=== PATIENT | male | born 1995 ===

== ENCOUNTER 2023-12-13 11:01 | Emergency (ER) | payer OTHER, SELFPAY ==
[2023-12-13 11:18] VITALS: BP 136/66; PULSE 88; RESP 20; TEMP 37.4; O2SAT 99
--- NOTE | 2023-12-13 12:03 | ED.URI ---
HPI - URI/Sore Throat General Chief Complaint: Upper Respiratory Infection Stated Complaint: Headache/Sore Throat Time Seen by Provider: 12/13/23 11:40 Source: patient, family, RN notes reviewed and old records reviewed Mode of arrival: ambulatory Limitations: no limitations History of Present Illness HPI Narrative: 28 year old male wh presents to [facility] care with complaints of sore throat, since Thursday 2 days ago. Yesterday he started having fever, chills and body aches, with increasing symptoms. Patient reports that he has been taking Tylenol and Ibuprofen for his symptoms and fevers. MD elicited complaint: fever, sore throat and other (body aches) Pertinent past history: other (nasal surgery) Onset (ago): day(s) (day 3 of symptoms) Pain scale (0-10): 4 Description of mucous: clear Able to tolerate fluids by mouth: Yes Exacerbating factors: swallowing Treatments prior to arrival: acetaminophen and ibuprofen Related Data Allergies Allergy/AdvReac Type Severity Reaction Status Date / Time No Known Allergies Allergy Verified 12/13/23 11:33 Review of Systems Review of Systems: CONSTITUTIONAL:Reports malaise, chills, sweats, or fever. EYES: Denies visual changes, redness, or discharge. ENT: Reports rhinorrhea, congestion, sinus pain, otalgia and sore throat. CARDIOVASCULAR: Denies chest pain, palpitations, or edema. RESPIRATORY: Reports no acute cough.? Denies dyspnea. GASTROINTESTINAL: Denies abdominal pain, nausea, vomiting, diarrhea SKIN: Denies rash or itching. MUSCULOSKELETAL:Reports myalgia. NEUROLOGIC: Denies headache. All systems reviewed & are unremarkable except as noted in HPI and below PMFSH Surgical History Surgical History (Updated 12/14/23 @ 19:03 by Tiffanie Khanna NP) History of nasal surgery Social History Social History (Updated 12/14/23 @ 19:03 by Tiffanie Khanna NP) Smoking status: Never smoker Alcohol intake: current Alcohol use details: rare Substance use type: does not use Living arrangements: with family Gender identity (if verbalized by the patient): Male Comments At time of signature, agree with nursing past medical, surgical, social and family history. There is no relevant family history pertinent to the presenting complaint Exam Narrative: GENERAL: Well-appearing, well-nourished, and in no acute distress. HEAD: Normocephalic EYES: PERRLA, conjunctivae clear ENT: Nares clear, turbinates edematous and erythematous, clear discharge. Mucous membranes moist.Right TM red, Left TM pearly lindsey with dull light reflex; no tragal tenderness. Oropharynx erythematous without lesions. Tonsils enlarged and without exudate, no drooling, no hoarseness, no trismus, uvula midline.post nasal drainage NECK: Supple. No lymphadenopathy CHEST: Clear to auscultation, breath sounds equal. No wheezing, rhonchi, rales, or stridor. No respiratory distress, speaks in full sentences.no cough noted,SAO2 99% on room air HEART: Regular rate and rhythm. No murmur heard. SKIN: Warm, dry, no rash. NEURO: Alert and oriented x3. PSYCH: Normal mood and affect Course Course Emergency Course: Patient is aware of diagnosis, understands and agrees to treatment plan.? Anticipatory guidance given.? Patient agrees to follow-up as directed and is aware of reasons to seek care at the emergency department. Portions of this record may have been created with voice recognition software Level of Care: Express Care Visit Vital Signs Vital signs: Vital Signs Temperature 37.4 C 12/13/23 11:18 Pulse Rate 88 12/13/23 11:18 Respiratory Rate 20 12/13/23 11:18 Blood Pressure 136/66 12/13/23 11:18 Pulse Oximetry 99 12/13/23 11:18 Oxygen Delivery Room Air 12/13/23 11:18 Temperature 37.4 C 12/13/23 11:18 Pulse Rate 88 12/13/23 11:18 Respiratory Rate 20 12/13/23 11:18 Blood Pressure 136/66 12/13/23 11:18 Pulse Oximetry 99 12/13/23
== END 2023-12-13 12:16 | disposition home or self-care (01) ==
PROVIDERS: Emergency Provider Registered Nurse
DX: H65.01 Acute serous otitis media, right ear (principal); J02.9 Acute pharyngitis, unspecified
CPT/HCPCS: 87081; 87804; 87880; 99213; G0463